=== PATIENT | female | born 1965 | race Caucasian/White ===

== ENCOUNTER 2017-10-26 07:57 | Emergency (ER) | payer OTHER ==
[~2017-10-26] VITALS: Ht 170.2 cm; Wt 54.0 kg
--- NOTE | 2017-10-26 08:00 | NUR ---
STATUS PATIENT REMAINS TEARFUL, DOCTOR AT BEDSIDE.
[2017-10-26 08:02] VITALS: BP 109/78
[2017-10-26] MEDS ORDERED: LEVO125T62 PO (08:04)
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
--- NOTE | 2017-10-26 08:15 | NUR ---
STATUS NO DISTRESS NOTED
--- NOTE | 2017-10-26 08:22 | NUR ---
POISON CONTROL SPOKE WITH ELMO AT POISON CONTROL, STATES WITH COREG PATIENT WOULD HAVE HYPOTENSION AND BRADYCARDIA, LISINOPRIL SHE WOULD HAVE TO TAKE A WHOLE LOT FOR ANY SIGNS OF TAKING THEM, SYMPTAMATIC CARE, LABS WORK (TYLENOL,ASA,URINE DRUG SCREEN,ALCOHOL AND PSYCH CONSULT). POISON CONTROL WILL CALL BACK TO CHECK ON PATIENT.
[2017-10-26 08:24] LABS: BASOPHIL # 0.1 10^3/uL (0.0-0.1); BASOPHIL % 0.4 % (0.0-0.2); EOSINOPHIL % 0.1 % (0.0-5.0); HEMOGLOBIN 12.2 g/dL (12.0-15.0); LYMPHOCYTES # 1.4 10^3/uL (1.0-4.8); LYMPHOCYTES % 10.7 % (24.0-44.0); MEAN CELL HGB 25.3 pg (26-34); MEAN CELL HGB CONCENTRATION 31.4 g/dL (33-37); MEAN CORP VOLUME 80.7 fL (78-100); MEAN PLATELET VOLUME 10.8 fL (7.8-11.0); MONOCYTES # 1.3 10^3/uL (0.3-0.8); MONOCYTES % 9.6 % (5.0-12.0); NEUTROPHIL # 10.5 10^3/uL (1.8-7.7); WHITE BLOOD CELL 13.3 10^3/uL (4.5-11.0)
[2017-10-26 08:27] LABS: BILIRUBIN,URINE NEGATIVE (NEGATIVE); UROBILINOGEN,URINE NORMAL (NEGATIVE)
[2017-10-26 08:28] LABS: APPEARANCE,URINE CLEAR (CLEAR); UA COLOR YELLOW (YELLOW)
--- NOTE | 2017-10-26 08:45 | NUR ---
STATUS PATIENT RESTING, NO DISTRESS NOTED.
--- NOTE | 2017-10-26 08:51 | PCM.EKG ---
[facility] Test Date: 2017-10-26 Test Time: 08:33:41 Pat Name: LEXUS VANEGAS Department: Patient ID: [facility]-[id number] Room: Gender: F Appeals Officer: RT : 1965 Requested By: OSMEL LACY Order Number: [id number] Reading MD: Osmel Lacy Measurements Intervals Gary Rate: 92 P: 78 AL: 146 QRS: 80 QRSD: 88 T: 79 QT: 354 QTc: 437 Interpretive Statements Normal sinus rhythm Right atrial enlargement Borderline ECG No previous ECG available for comparison Electronically Signed On 10-28-2017 7:18:08 CDT by Osmel Lacy Please click the below link to view image of tracing.
[2017-10-26 08:52] LABS: ALANINE AMINOTRANSFERASE(ML) 19 U/L (12-78); ALKALINE PHOSPHATASE 142 U/L (50-136); ASPARTATE AMINO TRANSFERASE 17 U/L (0-35); CALCIUM 9.7 mg/dL (8.4-10.5); CARBON DIOXIDE 23.2 mmol/L (20.0-32); GLUCOSE 118 mg/dL (70-110)
[2017-10-26 08:53] LABS: ACETAMINOPHEN < 2 ug/mL (10-30)
--- NOTE | 2017-10-26 09:05 | NUR ---
STATUS NO DISTRESS NOTED.
--- NOTE | 2017-10-26 09:18 | NUR ---
TPC CALLED [facility] CRISIS HOTLINE,SPOKE WITH PAIGE, WILL CALL AND GET TPC TO EVAL PATIENT, AWAITING THEIR CALL BACK.
--- NOTE | 2017-10-26 09:32 | NUR ---
TPC ANDREZ WITH [facility] CALLED, WILL TELEMED WITH PATIENT SHORTLY.
--- NOTE | 2017-10-26 09:45 | NUR ---
STATUS PATIENT RESTING, AWAITING ON LAB WORK RETURN
--- NOTE | 2017-10-26 10:00 | NUR ---
STATUS FAXED INFORMATION
--- NOTE | 2017-10-26 10:16 | NUR ---
TPC [facility] EVALUATION COMPLETE WITH ANDREZ, WANT [facility]. WILL FAX ASSESMENT TO [facility] AND CHECK ROOM AVAILIBILTY.
[2017-10-26 10:23] LABS: SEGMENTED NEUTROPHILS 76 % (31-76)
[2017-10-26 10:24] LABS: BAND NEUTROPHILS 3 % (2-6); BASOPHIL 1 % (0-2); LYMPHOCYTE 11 % (25-36); MONOCYTE 7 % (3-9)
--- NOTE | 2017-10-26 10:30 | NUR ---
STATUS PATIENT SLEEPING WITH BLANKET OVER HEAD, DENIES NEEDS AT THIS TIME
--- NOTE | 2017-10-26 10:45 | NUR ---
STATUS EATING MEAL AT THIS TIME.
--- NOTE | 2017-10-26 11:00 | NUR ---
[facility]
--- NOTE | 2017-10-26 11:15 | NUR ---
STATUS AWAITING TO HEAR FROM [facility], DENIES NEEDS AT THIS TIME
--- NOTE | 2017-10-26 11:30 | NUR ---
STATUS PATIENT RESTING, NO DISTRESS NOTED.
--- NOTE | 2017-10-26 11:45 | NUR ---
STATUS PATIENT RESTING, AWAKING TRANSFER.
--- NOTE | 2017-10-26 12:00 | NUR ---
STATUS PATIENT RESTING ON GURNEY, NO DISTRESS NOTED.
--- NOTE | 2017-10-26 12:15 | NUR ---
STATUS PATIENT DENIES NEEDS AT THIS TIME
--- NOTE | 2017-10-26 12:30 | NUR ---
[facility]
--- NOTE | 2017-10-26 12:45 | NUR ---
STATUS PATIENT RESTING WITH BLANKET OVER HER HEAD, DENIES NEEDS AT THIS TIME.
--- NOTE | 2017-10-26 13:18 | NUR ---
LMFT LMFT CALLED TO ED FOR COURT COMMITAL
--- NOTE | 2017-10-26 13:40 | NUR ---
STATUS PATIENT RESTING AWAITING TRANSFER TO THE [facility]
[2017-10-26 13:47] VITALS: BP 121/76
--- NOTE | 2017-10-26 14:00 | NUR ---
STATUS PATIENT STATED SHE IS "AFRAID", NURSING SPOKE WITH PATIENT ABOUT GETTING HELP, DENIES NEEDS AT THIS TIME.
--- NOTE | 2017-10-26 14:22 | NUR ---
[facility] OFFICER OFFICER HERE FOR TRANSPORT
[2017-10-26 14:23] VITALS: BP 121/76
== END 2017-10-26 14:25 ==
LOC: ER 07:57 → EDBD 07:57 → ER 14:25
DX: F32.9 Major depressive disorder, single episode, unspecified (principal); R79.1 Abnormal coagulation profile; Z88.0 Allergy status to penicillin; E07.9 Disorder of thyroid, unspecified; I10 Essential (primary) hypertension; Z86.73 Personal history of transient ischemic attack (TIA), and cerebral infarction without residual deficits; Z98.890 Other specified postprocedural states; Z79.899 Other long term (current) drug therapy; D72.810 Lymphocytopenia
CPT/HCPCS: 36415; 80053; 80307; 81002; 82550; 82553; 84484; 84703; 85025; 93005; 99285; G0481; G0482; G0483